=== PATIENT | male | born 1960 | race Caucasian/White ===

== ENCOUNTER 2017-02-19 17:37 | Inpatient (IN) ==
--- NOTE | 2017-02-19 17:49 | Emergency Department Note ---
Disposition Clinical Impression: Transient cerebral ischemia Qualifiers: Transient cerebral ischemia type: unspecified Qualified Code(s): G45.9 - Transient cerebral ischemic attack, unspecified Disposition: Admitted As Inpatient Condition: Good [facility]: [facility] Care Provider[facility] - Forms: ED Satisfaction Letter Time of Disposition: 19:05 Neuro HPI - General Chief Complaint: ED Neuro Symptoms/Deficit Stated Complaint: right side numbness face/arm/leg Time Seen by Provider: 02/19/17 17:42 Source: patient, EMS Mode of arrival: EMS Limitations: no limitations Nursing Notes Reviewed: Yes Vital Signs Reviewed: Yes - History of Present Illness HPI Narrative: 56-year-old with onset of right-sided facial right arm and right leg numbness and says he couldn't use his arm like he normally does earlier. Last known well was 9:30 this morning. He states symptoms have improved. Patient will was seen at the [facility] they did no testing no imaging and sent him right here. Onset of Symptoms Date: 02/19/17 Onset of Symptoms Time: 09:30 Symptom Onset Unknown: No Timing confirmed by: caregiver Location: right face, right arm, right leg History of same: No Severity: moderate Quality: numbness, other (Some difficulty using the right arm) Symptoms Improving: Yes Improves with: time Worsens with: none Context: sudden onset On Anticoagulants: No Associated symptoms: Reports: denies other symptoms Treatments Prior to Arrival: none - Related Data Home Medications: Previous Rx's Medication Instructions Recorded methylPREDNISolone [Medrol] 1 pack PO DAILY #1 packet 09/27/15 Allergies/Adverse Reactions: Allergies Allergy/AdvReac Type Severity Reaction Status Date / Time Penicillins Allergy Rash Verified 02/19/17 17:40 Sulfa (Sulfonamide Allergy Swelling Verified 02/19/17 17:40 Antibiotics) of Lip/Tongue/Throat fruits Allergy Hives Uncoded 02/19/17 17:40 Constitutional: Denies: fever, chills, weakness, weight change Eyes: Denies: eye pain, eye discharge, vision change ENT ED: Denies: ear pain, throat pain, dental pain, hearing loss, epistaxis, congestion, dysphagia Cardiovascular: Denies: chest pain, palpitations, dyspnea on exertion, edema, syncope Respiratory: Denies: cough, dyspnea, wheezes, hemoptysis, stridor Gastrointestinal: Denies: abdominal pain, nausea, vomiting, diarrhea, constipation, hematemesis, melena, hematochezia Genitourinary: Denies: urgency, dysuria, frequency, hematuria Musculoskeletal: Denies: back pain, neck pain, arthralgia, myalgia Integumentary: Denies: rash, abrasion, lesions Neurological: Reports: numbness, other (Coordination of right arm). Denies: headache, weakness, paresthesias, confusion, abnormal gait, vertigo Psychiatric: Denies: anxiety, depression, suicidal thoughts, homicidal thoughts , auditory hallucinations, visual hallucinations Endocrine: Denies: fatigue Hematological/Lymphatic: Denies: easy bleeding, easy bruising Allergic/Immunologic: Denies: facial swelling, urticaria Past Medical History - Past Medical History Medical history: Reports: GERD, other Psychiatric history: Reports: no psych history - Social History Smoking Status: Never smoker Smokeless Tobacco Status: No Alcohol use: Reports: rarely Drug use: Reports: none Physical Exam - General Limitations: no limitations General appearance: alert, in no apparent distress - Head Head exam: atraumatic, normocephalic, normal inspection - Eye Eye exam: Present: normal appearance, PERRL, EOMI - ENT ENT exam: normal exam, normal oropharynx, mucous membranes moist - Neck Neck exam: Present: normal inspection, full ROM, trachea midline - Chest Chest inspection: Present: normal inspection, symmetric chest wall rise - Respiratory Respiratory exam: Present: normal lung sounds bilaterally - Cardiovascular Cardiovascular exam: Present: regular rate, normal rhythm, normal heart sounds - Abdominal Exam Abdominal exam: Present: soft, Non-Tender. Absent: tenderness, distention, guarding, rebound, rigidity - Extremities Exam Extremities exam: Present: normal inspection, full ROM. Absent: tenderness, pedal edema - Expanded Lower Extremity Exam Neurovascular/Tendon exam: Absent: motor deficit, sensory deficit, tendon deficit Gait: observed and normal - Back Exam Back exam: Present: normal inspection, full ROM. Absent: tenderness - Neurological Exam Neurological exam: Present: alert, oriented X3, motor sensory deficit (Some decreased sensation in the right arm and right face) - Psychiatric Psychiatric exam: Present: normal affect, normal mood Course - Reevaluation(s) Reevaluation #1: 56-year-old male who comes in with numbness in his right arm right leg and face. Had some difficulty using his right arm earlier. CT shows chronic ischemic changes noted acute findings. His onset was 9:30 this morning which is more than 4-1/2 hours since onset. His symptoms are improving. Consultation obtained with neurology not a TPA candidate patient did receive aspirin at the [place]. He will be admitted for further evaluation and treatment. Time: 19:06 - Consultations Consultation #1: Discussed with , not TPA condidate. Time: 18:59 Consultation #2: Discussed with Dr. Johnson, admit Time: 19:21 Vital Signs Pulse Rate 68 02/19/17 17:42 Respiratory Rate 20 02/19/17 17:42 Blood Pressure 163/91 02/19/17 17:42 Temperature 98.1 F 02/19/17 17:43 Pulse Rate 58 02/19/17 18:53 Respiratory Rate 20 02/19/17 18:53 Blood Pressure 154/94 02/19/17 18:53 O2 Sat by Pulse Oximetry 96 02/19/17 17:53 Oxygen Delivery Oxygen Delivery Room Air Neuro Symptoms/Deficit - Lab Data Lab results reviewed: Yes I reviewed the patient's lab results. Result diagrams: 02/19/17 15:51 02/19/17 15:51 Lab Results 02/19/17 02/19/17 02/19/17 Range/Units 15:51 15:51 15:51 WBC 9.6 (4.3-11.1) K/mcL RBC 4.43 (4.19-5.50) M/mcL Hgb 12.9 (12.9-16.9) g/dL Hct 37.6 (37.5-50.1) % MCV 84.9 (83.0-100.0) fL MCH 29.1 (28.0-33.3) pg MCHC 34.3 (31.6-35.5) g/dL RDW 14.0 (11.5-14.5) % Plt Count 172 (140-400) K/mcL MPV 11.4 (9.4-12.4) fL Immature Gran % 0.3 (0-4) % Seg Neutrophils % 57.4 % Lymphocytes % 30.1 % Monocytes % 7.7 % Eosinophils % 3.8 % Basophils % 0.7 % Neutrophils # 5.5 (1.6-8.9) K/mcL Lymphocytes # 2.9 (0.6-4.6) K/mcL Monocytes # 0.7 (0.0-1.3) K/mcL Eosinophils # 0.4 (0.0-0.6) K/mcL Basophils # 0.1 (0.0-0.2) K/mcL PT 12.3 H (9.4-12.1) Seconds INR 1.1 APTT 32.6 (26.0-36.0) Seconds Sodium 138 (136-145) mEq/L Potassium 4.2 (3.5-4.5) mEq/L Chloride 106 (98-109) mEq/L Carbon Dioxide 26 (19-29) mEq/L BUN 24 (8-26) mg/dL Creatinine 1.07 (0.72-1.25) mg/dL Est GFR ( Amer) > 60 (> 60) Est GFR (Non-Af Amer) > 60 (> 60) BUN/Creatinine Ratio 22 (6-26) Glucose 80 (70-99) mg/dL Calculated Osmolality 289 (280-300) Calcium 9.7 (8.6-10.8) mg/dL Troponin I (0-0.03) ng/mL 02/19/17 Range/Units 15:51 WBC (4.3-11.1) K/mcL RBC (4.19-5.50) M/mcL Hgb (12.9-16.9) g/dL Hct (37.5-50.1) % MCV (83.0-100.0) fL MCH (28.0-33.3) pg MCHC (31.6-35.5) g/dL RDW (11.5-14.5) % Plt Count (140-400) K/mcL MPV (9.4-12.4) fL Immature Gran % (0-4) % Seg Neutrophils % % Lymphocytes % % Monocytes % % Eosinophils % % Basophils % % Neutrophils # (1.6-8.9) K/mcL Lymphocytes # (0.6-4.6) K/mcL Monocytes # (0.0-1.3) K/mcL Eosinophils # (0.0-0.6) K/mcL Basophils # (0.0-0.2) K/mcL PT (9.4-12.1) Seconds INR APTT (26.0-36.0) Seconds Sodium (136-145) mEq/L Potassium (3.5-4.5) mEq/L Chloride (98-109) mEq/L Carbon Dioxide (19-29) mEq/L BUN (8-26) mg/dL Creatinine (0.72-1.25) mg/dL Est GFR ( Amer) (> 60) Est GFR (Non-Af Amer) (> 60) BUN/Creatinine Ratio (6-26) Glucose (70-99) mg/dL Calculated Osmolality (280-300) Calcium (8.6-10.8) mg/dL Troponin I 0.01 (0-0.03) ng/mL - Radiology Data Radiology results reviewed: Yes I reviewed the patient's radiology results. Head CT 02/19/17 17:44 IMPRESSION: No acute intracranial abnormality. Nonspecific areas of hypoattenuation within the periventricular and subcortical white matter, most in the right frontal lobe, which likely represent chronic microvascular ischemic change. D/ / 02/19/2017 18:23:03 Terry Farmer MD / danelle Interpreting Provider: Terry Farmer MD - EKG Data EKG attestation: Yes I reviewed and interpreted this EKG. EKG shows normal: sinus rhythm Rate: normal Rhythm: NSR Interpretation: no acute changes NIH Stroke Scale - Level of Consciousness LOC: Alert - LOC Questions LOC Questions: Answers both correctly - LOC Commands LOC Commands: Performs both correctly - Best Gaze Best Gaze: Normal - Visual Visual: No visual loss - Facial Palsy Facial Palsy: Normal - Motor Arms Motor Arm-Left: No drift for 10 seconds Motor Arm-Right: No drift for 10 seconds - Motor Legs Motor Leg-Left: No drift for 5 seconds Motor Leg-Right: No drift for 5 seconds - Limb Ataxia Limb Ataxia: Normal, No Ataxia - Sensory Sensory: Mild to moderate loss, "not as sharp" - Best Language Best Language: No aphasia - Dysarthria Dysarthria: Normal - Extinction and Inattention Extinction and Inattention: Normal - NIHSS Total Score NIHSS Total Score: 1 TPA Checklist - Eligibilty for IV tPA 1. LKW equal to or less than 4.5 hours be before treatment: No - LKW: 3-4.5 hrs Add. Warnings/Precautions Patient/family understanding: The patient/family members have been counseled and understood the risk, benefit , and alternatives of treatment.
[2017-02-19 17:57] LABS: Basophils # 0.1 K/mcL (0.0-0.2); Basophils % 0.7 %; Eosinophils # 0.4 K/mcL (0.0-0.6); Eosinophils % 3.8 %; Hematocrit 37.6 % (37.5-50.1); Hemoglobin 12.9 g/dL (12.9-16.9); Immature Granulocytes % 0.3 % (0-4); Lymphocytes # 2.9 K/mcL (0.6-4.6); Lymphocytes % 30.1 %; Mean Corpuscular HGB Conc 34.3 g/dL (31.6-35.5); Mean Corpuscular Hemoglobin 29.1 pg (28.0-33.3); Mean Corpuscular Volume 84.9 fL (83.0-100.0); Mean Platelet Volume 11.4 fL (9.4-12.4); Monocytes # 0.7 K/mcL (0.0-1.3); Monocytes % 7.7 %; Neutrophils # 5.5 K/mcL (1.6-8.9); Platelet Count 172 K/mcL (140-400); Red Blood Count 4.43 M/mcL (4.19-5.50); Segmented Neutrophils % 57.4 %
[2017-02-19 18:02] LABS: INR 1.1; Prothrombin Time 12.3 Seconds (9.4-12.1)
[2017-02-19 18:05] LABS: Activated Partial Thrombo Time 32.6 Seconds (26.0-36.0)
[2017-02-19 18:09] LABS: BUN/Creatinine Ratio 22 (6-26); Blood Urea Nitrogen 24 mg/dL (8-26); Calcium 9.7 mg/dL (8.6-10.8); Carbon Dioxide 26 mEq/L (19-29); Chloride 106 mEq/L (98-109); Glucose 80 mg/dL (70-99); Osmolality,Calculated 289 (280-300); Potassium 4.2 mEq/L (3.5-4.5); Sodium 138 mEq/L (136-145); eGFR For African Americans > 60 (> 60); eGFR For Non-African Americans > 60 (> 60)
[2017-02-19] MEDS ORDERED: tiZANidine 4 MG TABLET PO PRN (21:15)
--- NOTE | 2017-02-19 21:21 | Internal Med History&Physical ---
Date of Encounter: 02/19/17 Time of Encounter: 21:18 Assessment and Plan (1) Hypertension Current visit: Yes Status: Acute hold blood pressure medications to allow for permissive hypertension. Qualifiers: Qualified Code(s): I10 - Essential (primary) hypertension (2) Prediabetes Current visit: Yes Status: Acute Sliding scale insulin. Check hemoglobin A-1 C (3) Transient cerebral ischemia Current visit: Yes Status: Acute We will start the patient on aspirin and Stantin. Check echocardiogram carotid Doppler. We will get MRI of the head. Neurology evaluation. PT/OT and speech therapy to see the patient Qualifiers: Transient cerebral ischemia type: unspecified Qualified Code(s): G45.9 - Transient cerebral ischemic attack, unspecified Internal Medicine - H&P: HPI Chief complaint: right side numbness History of present illness: Mr. Mcconnell is a 56 year old male with history of hypertension, prediabetes, 25 pack your smoking history presents to [facility] with main complain of right side numbness. At 9 AM patient started noticing numbness in the right arm, shortly after that progressed to involve right side of lip and right lower extremity. He denies any moral weakness but mentioned that he may have been having some difficulty holding things because of the numbness. He denies any fish last mentioned or speech slenderness. He denies any prior similar episodes. He mentioned that his right arm numbness was still present during my interview. No recency brand illnesses. No chest pain or shortness of breath. Denies drug use. Past Med Surg Social Fam HX - Past Medical History Medical history: GERD, other Psychiatric history: no psych history - Social History Smoking Status: Never smoker Smokeless Tobacco Status: No Alcohol use: rarely Drug use: none Internal Medicine - H&P: Meds Alfuzosin HCl [Uroxatral] 10 mg PO HS 02/19/17 [History] Cholecalciferol (D-3) [Vitamin D] 1,000 unit PO DAILY 02/19/17 [History] Dutasteride [Avodart] 0.5 mg PO HS 02/19/17 [History] Fluticasone Propionate Nasal [Flonase] 100 mcg NS DAILY 02/19/17 [History] Gabapentin [Neurontin] 1,200 mg PO TID 02/19/17 [History] GuaiFENesin/Dextromethorphan [Tussin Dm Syrup] 10 ml PO Q4H PRN 02/19/17 [ History] Lidocaine 4% CRM (LMX) [Lmx 4] 1 appl TP BID 02/19/17 [History] Lisinopril [Zestril] 10 mg PO DAILY 02/19/17 [History] Metformin HCl [Metformin HCl ER] 500 mg PO QPM 02/19/17 [History] Montelukast [Singulair] 10 mg PO DAILY 02/19/17 [History] Naproxen [Naprosyn] 500 mg PO BID 02/19/17 [History] Omeprazole [PriLOSEC] 20 mg PO DAILY 02/19/17 [History] Tizanidine HCl 2 mg PO BID PRN 02/19/17 [History] Tramadol HCl [Ultram] 100 mg PO TID PRN 02/19/17 [History] 3 Allergy/AdvReac Type Severity Reaction Status Date / Time Penicillins Allergy Rash Verified 02/19/17 17:40 Sulfa (Sulfonamide Allergy Swelling Verified 02/19/17 17:40 Antibiotics) of Lip/Tongue/Throat fruits Allergy Hives Uncoded 02/19/17 17:40 All Systems PM: A 10-system review of systems was performed and is negative for pertinent findings except as documented above in the HPI. Review of systems: 10 point review of systems is negative except for HPI - Constitutional Vitals: Temp Pulse Resp BP Pulse Ox 98.1 F 58 0 0/0 96 02/19/17 17:43 02/19/17 18:53 02/19/17 20:28 02/19/17 20:28 02/19/17 17:53 Exam: Gen.: patient is alert oriented times 3 kn and distress. Cardiac: normal S1 S2 no additional sounds are murmurs chest: clear auscultation bilaterally abdomen: soft nontender nondistended normal bowel sounds lower extremity no swelling neurological: no focal weakness, intact sensation, intracranial nerve examination, normal cerebellar signs. Internal Med - H&P Results - Labs CBC & Chem 7: 02/19/17 15:51 02/19/17 15:51
[2017-02-19] MEDS ORDERED: Dextrose Gel 15 GM PO PRN ×2 (22:07)
[2017-02-19] MEDS ORDERED: D5% in Water 1,000 ML IVC PRN (22:07)
[2017-02-19] MEDS ORDERED: *HR* Dextrose 50 % in Water (Syg) 50 ML SYRINGE IVP PRN (22:07)
[2017-02-19] MEDS: traMADol 50 MG TABLET PO PRN (23:40)
[2017-02-20 05:12] LABS: Basophils # 0.1 K/mcL (0.0-0.2); Basophils % 0.7 %; Eosinophils # 0.5 K/mcL (0.0-0.6); Eosinophils % 5.4 %; Hematocrit 38.2 % (37.5-50.1); Hemoglobin 12.9 g/dL (12.9-16.9); Immature Granulocytes % 0.3 % (0-4); Lymphocytes # 2.7 K/mcL (0.6-4.6); Lymphocytes % 31.1 %; Mean Corpuscular HGB Conc 33.8 g/dL (31.6-35.5); Mean Corpuscular Hemoglobin 28.9 pg (28.0-33.3); Mean Corpuscular Volume 85.5 fL (83.0-100.0); Mean Platelet Volume 11.8 fL (9.4-12.4); Monocytes # 0.7 K/mcL (0.0-1.3); Monocytes % 8.4 %; Neutrophils # 4.7 K/mcL (1.6-8.9); Platelet Count 178 K/mcL (140-400); Red Blood Count 4.47 M/mcL (4.19-5.50); Red Cell Distribution Width 13.9 % (11.5-14.5); Segmented Neutrophils % 54.1 %
[2017-02-20 05:25] LABS: Hemoglobin A1C 5.7 %
[2017-02-20 05:28] LABS: BUN/Creatinine Ratio 19 (6-26); Blood Urea Nitrogen 21 mg/dL (8-26); Calcium 9.7 mg/dL (8.6-10.8); Carbon Dioxide 26 mEq/L (19-29); Chloride 105 mEq/L (98-109); Glucose 106 mg/dL (70-99); Osmolality,Calculated 293 (280-300); Potassium 4.5 mEq/L (3.5-4.5); Sodium 140 mEq/L (136-145); eGFR For African Americans > 60 (> 60); eGFR For Non-African Americans > 60 (> 60)
[2017-02-20] MEDS ORDERED: *HR* Heparin 5,000 UNIT/ML VIAL SQ SCH ×2 (06:00→18:00)
[2017-02-20] MEDS: Insulin LISPRO 300 UNITS/3 ML VIAL SQ SCH ×3 (07:57→16:37)
[2017-02-20] MEDS: Gabapentin 400 MG CAPSULE PO SCH ×2 (07:58→15:01)
[2017-02-20] MEDS: traMADol 50 MG TABLET PO PRN ×2 (08:08→15:00)
[2017-02-20] MEDS ORDERED: Aspirin 81 MG TAB.CHEW PO SCH (09:00)
[2017-02-20] MEDS ORDERED: Fluticasone Propionate Nasal 50 MCG/SPRAY BOTTLE NS SCH (09:00)
--- NOTE | 2017-02-20 11:05 | Neurology - Consult Note ---
Date of Encounter: 02/20/17 Time of Encounter: 11:02 Assessment and Plan (1) CVA (cerebral vascular accident) Current Visit: Yes Status: Acute Patient wit HTN, DM and obesity who developed acute right sided hemiparesthesia , with MRI of brain showing left thalamic infarct, lacunar in nature, small vessel in etiology. Will keep him on full aspirin 325mg daily. Await echocardiography and carotid artery doppler study. Permissive treatment for HTN for a week. Check lipid panel and treat accordingly. Patient has minimal neurological deficits. Okay to discharge after stroke work up is complete. Qualifiers: CVA mechanism: unspecified Qualified Code(s): I63.9 - Cerebral infarction, unspecified History of Present Illness Chief complaint: right sided paresthesia HPI: Mr. Mcconnell is a 56 year old male with PMH significant for HTN, DM, obesity chronic back pain who developed acute onset of right sided paresthesia, numbness yesterday at 9am. By the time he went to ER, the numbness improved with only right hand feeling different. Decided not to be a candidate for tPA thrombolysis due to very mild neurological deficits. MRI of brain showed presence of acute left thalamic infarct. carotid artery duplex and echocardiography results are pending. Past Med Surg Social Fam HX - Past Medical History Medical history: GERD, other Psychiatric history: no psych history - Social History Smoking Status: Never smoker Smokeless Tobacco Status: No Alcohol use: rarely Drug use: none Medications and Allergies Alfuzosin HCl [Uroxatral] 10 mg PO HS 02/19/17 [History] Cholecalciferol (D-3) [Vitamin D] 1,000 unit PO DAILY 02/19/17 [History] Dutasteride [Avodart] 0.5 mg PO HS 02/19/17 [History] Fluticasone Propionate Nasal [Flonase] 100 mcg NS DAILY 02/19/17 [History] Gabapentin [Neurontin] 1,200 mg PO TID 02/19/17 [History] GuaiFENesin/Dextromethorphan [Tussin Dm Syrup] 10 ml PO Q4H PRN 02/19/17 [ History] Lidocaine 4% CRM (LMX) [Lmx 4] 1 appl TP BID 02/19/17 [History] Lisinopril [Zestril] 10 mg PO DAILY 02/19/17 [History] Metformin HCl [Metformin HCl ER] 500 mg PO QPM 02/19/17 [History] Montelukast [Singulair] 10 mg PO DAILY 02/19/17 [History] Naproxen [Naprosyn] 500 mg PO BID 02/19/17 [History] Omeprazole [PriLOSEC] 20 mg PO DAILY 02/19/17 [History] Tizanidine HCl 2 mg PO BID PRN 02/19/17 [History] Tramadol HCl [Ultram] 100 mg PO TID PRN 02/19/17 [History] 3 Allergy/AdvReac Type Severity Reaction Status Date / Time Penicillins Allergy Rash Verified 02/19/17 17:40 Sulfa (Sulfonamide Allergy Swelling Verified 02/19/17 17:40 Antibiotics) of Lip/Tongue/Throat fruits Allergy Hives Uncoded 02/19/17 17:40 All Systems: A 10-system review of systems was performed and is negative for pertinent findings except as documented above in the HPI. Physical Examination - Vital Signs Vital Signs: Initial Vital Signs Pulse Resp BP 68 20 163/91 02/19/17 17:42 02/19/17 17:42 02/19/17 17:42 - Constitutional General appearance: comfortable - Neurologic Sensorimotor examination: other (right hand reduced pinprick) Detailed motor examination: grossly full strength in all extremities Motor examination - right side: 5/5: deltoids, biceps, triceps, wrist flexion, wrist extension, hr business partner consultant, hip flexors, tibialis Anterior, quadriceps, toe extension (EHL), plantarflexion Motor examination - left side: 5/5: deltoids, biceps, triceps, wrist flexion, wrist extension, hip flexors, hr business partner consultant, quadriceps, tibialis Anterior, toe extension (EHL), plantarflexion Detailed sensory examination: other (Right hand reduced pinprick) Reflexes: Biceps: 1+, Triceps: 1+, Brachioradialis: 1+, Patella: 1+, Achilles: 1 + Mental Status Examination: awake, alert, oriented to person, oriented to place, oriented to time, follows commands appropriately, answers questions appropriately, no agnosia, no aphasia, no aproxia Cranial nerve examination: PERRL, EOMI, visual cabral intact, corneal reflexes brisk symmetrically, sensory to face intact, mastication intact, no facial asymmetry is present, no dysarthria, hearing is intact symmetrically, soft palate elevates bilaterally upon phonation, gag reflex intact, flexes SCM and trapezius muscles symmetrically with full power, tongue protrudes midline, no atrophy or facial fasiculations present Cerebellar examination: no dysmetria, performs finger to nose and heel to tilley symmetrically without ataxia, no gait ataxia, no truncal ataxia, no difficulty with rapid alternating movements Results - Laboratory Findings CBC and BMP: 02/20/17 04:51 02/20/17 04:51 Abnormal lab findings: Abnormal lab results PT 12.3 Seconds (9.4-12.1) H 02/19/17 15:51 Glucose 106 mg/dL (70-99) H 02/20/17 04:51 Hemoglobin A1c 5.7 % (-5.6) H 02/20/17 04:51 Consult Discharge Plan - Plan [facility]errals: [facility] [Primary Care Provider[facility] -
[2017-02-20 16:38] VITALS: BP 170/108
--- NOTE | 2017-02-20 17:18 | Discharge Summary ---
<Uvaldo Caasnova - Last Filed: 02/20/17 17:49> Date of Encounter: 02/20/17 Time of Encounter: 17:21 - Discharge Diagnosis (1) CVA (cerebral vascular accident) Priority: Primary Status: Acute Qualifiers: CVA mechanism: unspecified Qualified Code(s): I63.9 - Cerebral infarction, unspecified (2) Hypertension Priority: Secondary Status: Acute Qualifiers: Hypertension type: essential hypertension Qualified Code(s): I10 - Essential (primary) hypertension (3) Prediabetes Priority: Secondary Status: Acute - Discharge Medications Prescriptions: Aspirin 325 mg PO DAILY #30 tablet Aspirin 325 mg PO DAILY #3 tablet Atorvastatin [Lipitor] 40 mg PO HS #30 tablet Atorvastatin [Lipitor] 40 mg PO HS #3 tablet Home Medications: Alfuzosin HCl [Uroxatral] 10 mg PO HS 02/19/17 [History] Cholecalciferol (D-3) [Vitamin D] 1,000 unit PO DAILY 02/19/17 [History] Dutasteride [Avodart] 0.5 mg PO HS 02/19/17 [History] Fluticasone Propionate Nasal [Flonase] 100 mcg NS DAILY 02/19/17 [History] Gabapentin [Neurontin] 1,200 mg PO TID 02/19/17 [History] GuaiFENesin/Dextromethorphan [Tussin Dm Syrup] 10 ml PO Q4H PRN 02/19/17 [ History] Lidocaine 4% CRM (LMX) [Lmx 4] 1 appl TP BID 02/19/17 [History] Lisinopril [Zestril] 10 mg PO DAILY 02/19/17 [History] Metformin HCl [Metformin HCl ER] 500 mg PO QPM 02/19/17 [History] Montelukast [Singulair] 10 mg PO DAILY 02/19/17 [History] Naproxen [Naprosyn] 500 mg PO BID 02/19/17 [History] Omeprazole [PriLOSEC] 20 mg PO DAILY 02/19/17 [History] Tizanidine HCl 2 mg PO BID PRN 02/19/17 [History] Tramadol HCl [Ultram] 100 mg PO TID PRN 02/19/17 [History] Aspirin 325 mg PO DAILY #3 tablet 02/20/17 [Rx] Aspirin 325 mg PO DAILY #30 tablet 02/20/17 [Rx] Atorvastatin [Lipitor] 40 mg PO HS #3 tablet 02/20/17 [Rx] Atorvastatin [Lipitor] 40 mg PO HS #30 tablet 02/20/17 [Rx] Allergies/Adverse Reactions: 3 Allergy/AdvReac Type Severity Reaction Status Date / Time Penicillins Allergy Rash Verified 02/19/17 17:40 Sulfa (Sulfonamide Allergy Swelling Verified 02/19/17 17:40 Antibiotics) of Lip/Tongue/Throat fruits Allergy Hives Uncoded 02/19/17 17:40 Date of admission: 02/20/17 10:59 [facility] care physician: [facility] Consults: neurology Discharging clinician: Uvaldo Casanova Anticipated date of discharge: 02/20/17 - Patient Status Disposition: Home, Self-Care Condition: Good Functional capacity at discharge: independent ambulation Overall status at discharge: patient is progressing back to baseline - Discharge Instructions Instructions: Aspirin (By mouth), Atorvastatin (By mouth), Ischemic Stroke (DC) Follow Up With: [facility]P [Primary Care Provider] - (MAKE APPT FOR 1 WEEK AFTER DISCHARGE.) Hugh Duff MD [Partnered Physician] - (PLEASE CALL WEDNESDAY AND MAKE APPT FOR 2 WEEKS AFTER DISCHARGE.) Additional Instructions: please do not use lisinopril for one week after discharge. You may then restart the medication please return to ER if you have signs of facial drooping, one sided weakness, numbness, slurred speech. please follow up with outpatient neurology and primary care alejandrina start new medication aspirin 324mg daily. Start atorvastatin 40mg daily. - Diet and Activity Activity: increase activity as tolerated Diet: low fat, low cholesterol, low salt diet Interval History: 56y/o male presented with complaint of right sided numbness which started at 9AM on 02/19/2017. Numbness involved right arm, lip, and lower extremity. When arriving to ER he continued ot have right arm numbness but his other symptoms had resolved. Heat CT negative. He did not receive tPA as his neurological dificits were mild. MRI of brain showed acute left thalamic infarct. Carotid artery duplex WNL and echocardiogram pending. neurology evaluated patient and recommended starting Aspirin 325mg and Atorvastatin and cleared him for discharge. Patient passed swallow evaluation. He was cleared by PT/OT. He is able to ambulate independently, tolerating his diet. Plan: start Aspirin 325mg dialy. start atorvastatin daily. Hold lisinopril for one week after discharge and then restart. Follow up outpatient with PCP and neurology. Hospital course: Mr. Mcconnell is a 56 year old male - Time Spent with Patient Total time spent providing and/or coordinating discharge services: - Constitutional Vitals: Temp Pulse Resp BP Pulse Ox 97.9 F 68 15 170/108 96 02/20/17 16:33 02/20/17 16:33 02/20/17 16:33 02/20/17 16:33 02/20/17 16:33 - Head Head exam: Present: atraumatic, normocephalic - Eye Eye exam: Present: PERRL, conjuntiva pink, sclera anicteric - Neck Neck exam general surgery: Present: supple, trachea midline. Absent: lymphadenopathy - Respiratory Respiratory exam: Present: CTAB. Absent: accessory muscle use, rales, rhonchi, wheezes - Cardiovascular Cardiovascular exam: Present: RRR, +S1, +S2. Absent: diastolic murmur, gallop, rubs, systolic murmur - GI/Abdominal GI/Abdominal exam: Present: normal bowel sounds, soft, no peritoneal signs. Absent: distended, tenderness - Extremities Exam Extremities exam: Present: warm, radial pulses palpable and symmetrical. Absent : calf tenderness, cyanotic, pedal edema - Neurological Exam Neurological exam: Present: CN II-XII intact, oriented X3, no focal deficits. Absent: pronater drift, facial droop, speech deficit - Skin Skin exam: Present: dry, intact - VTE Documentation of Mechanical Device: Intermittent pneumatic compression device <Tariq Bruce - Last Filed: 02/20/17 17:54> Date of Encounter: 02/20/17 - Discharge Diagnosis (1) CVA (cerebral vascular accident) Status: Acute Qualifiers: CVA mechanism: thrombosis Precerebral and cerebral artery: middle cerebral artery Laterality of affected vessel: right Qualified Code(s): I63.311 - Cerebral infarction due to thrombosis of right middle cerebral artery (2) Hypertension Status: Chronic Qualifiers: Hypertension type: essential hypertension Qualified Code(s): I10 - Essential (primary) hypertension (3) Prediabetes Status: Chronic Date of admission: 02/20/17 10:59 Primary care physician: [facility] Hospital course: Mr. Mcconnell is a 56 year old male - Time Spent with Patient Total time spent providing and/or coordinating discharge services: 32min - Constitutional Vitals: Temp Pulse Resp BP Pulse Ox 97.9 F 68 15 170/108 96 02/20/17 16:33 02/20/17 16:33 02/20/17 16:33 02/20/17 16:33 02/20/17 16:33 - Attending Attestation I examined this patient and my medical decision-making was reviewed with the Resident Physician on 02/20/17. I agree with the documented findings, disposition and treatment plan as described except to the extent set forth below. Mr. Mcconnell has been admitted for numbness R side. He has been found to have a thalamic CVA. His echo is pending. He is afebrile. BP is elevated for permissive HTN. He is ready for discharge home. Exam Alert. Comfortable Heart reg No wheeze No edema Plan D/C today Follow up with [facility].
[2017-02-20] MEDS ORDERED: Finasteride 5 MG TABLET PO SCH (21:00)
--- NOTE | 2017-02-21 17:52 | Electrocardiograph Report ---
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
--- NOTE | 2017-02-22 16:54 | Carotid Imaging Report ---
Carotid Duplex Patient Name:Christian Mcconnell Order Number:[id number] Procedure Date:02/20/2017 Date:1960ge:56 yrs Gender:Male Lt BP:145 / 90 mmHg Rt.BP:150 / 90 mmHgHeart Rate: Location[facility] Room #: 2NE29 Spectrographic Analyst:Jennifer Styles, RAMIRO, RVT Referring MD:Michael Smart MD Reading MD:Griffin Meredith MD , [facility] Primary Indications:TIA Risk Factors Yes/No Hypertension Yes Smoker Previous Yes Impressions: Findings: Bilateral carotid systems essentially normal. Findings Carotid Duplex: Right: The right proximal common carotid artery has a PSV of 98 cm/s and a EDV of 29 cm/s. The right mid common carotid artery has a PSV of 89 cm/s and a EDV of 25 cm/s. The right distal common carotid artery has a PSV of 82 cm/s and a EDV of 26 cm/s. The right bifurcation has a PSV of 61 cm/s and a EDV of 18 cm/s. The right proximal internal carotid artery has a PSV of 76 cm/s and a EDV of 23 cm/s. The right mid internal carotid artery has a PSV of 74 cm/s and a EDV of 36 cm/s. The right distal internal carotid artery has a PSV of 117 cm/s and a EDV of 52 cm/s. The right eca has a PSV of 103 cm/s and a EDV of 22 cm/s. The right vertebral artery has a PSV of 62 cm/s and a EDV of 20 cm/s. Left: The left proximal common carotid artery has a PSV of 70 cm/s and a EDV of 22 cm/s. The left mid common carotid artery has a PSV of 66 cm/s and a EDV of 24 cm/s. The left distal common carotid artery has a PSV of 65 cm/s and a EDV of 23 cm/s. The left bifurcation has a PSV of 63 cm/s and a EDV of 23 cm/s. The left proximal internal carotid artery has a PSV of 56 cm/s and a EDV of 17 cm/s. The left mid internal carotid artery has a PSV of 72 cm/s and a EDV of 30 cm/s. The left distal internal carotid artery has a PSV of 76 cm/s and a EDV of 25 cm/s. The left eca has a PSV of 83 cm/s and a EDV of 19 cm/s. The left vertebral artery has a PSV of 61 cm/s and a EDV of 20 cm/s. Prior Study: No prior study available for comparison. Carotid Results Right PSV EDV Assessment Proximal CCA 98 29 Mid CCA 89 25 Distal CCA 82 26 Bifurcation 61 18 Proximal ICA 76 23 Mid ICA 74 36 Distal ICA 117 52 ECA 103 22 Vertebral Artery 62 20 Antegrade Flow Left PSV EDV Assessment Proximal CCA 70 22 Mid CCA 66 24 Distal CCA 65 23 Bifurcation 63 23 Proximal ICA 56 17 Mid ICA 72 30 Distal ICA 76 25 ECA 83 19 Vertebral Artery 61 20 Antegrade Flow Ratio's Right ICA/CCA Ratio: 1.31 ICA/CCA Values: 117/89 Left ICA/CCA Ratio: 1.15 ICA/CCA Values: 76/66 Updated by Griffin Meredith MD, FACS on 02/22/2017 4:49:05 PM Griffin Meredith MD electronically signed on 02/22/2017 4:49:21 PM with status of Final
== END 2017-02-20 17:54 | disposition home or self-care (01) | DRG 66 ==
LOC: 2NENU 17:37 → EMEROO 17:37 → 2NENU 20:28
PROVIDERS: ADMIT Nurse Practitioner Family; ATTEND Internal Medicine

== ENCOUNTER 2020-12-27 09:57 | Observation (INO) ==
[2020-12-27 11:00] LABS: Basophils # 0.1 K/mcL (0.0-0.2); Basophils % 0.7 %; Eosinophils # 0.2 K/mcL (0.0-0.6); Hematocrit 36.5 % (37.5-50.1); Hemoglobin 12.1 g/dL (12.9-16.9); Immature Granulocytes % 0.1 % (0-4); Lymphocytes # 2.3 K/mcL (0.6-4.6); Lymphocytes % 32.3 %; Mean Corpuscular HGB Conc 33.2 g/dL (31.6-35.5); Mean Corpuscular Hemoglobin 28.8 pg (28.0-33.3); Mean Corpuscular Volume 86.9 fL (83.0-100.0); Mean Platelet Volume 11.6 fL (9.4-12.4); Monocytes # 0.5 K/mcL (0.0-1.3); Monocytes % 7.5 %; Platelet Count 170 K/mcL (140-400); Red Cell Distribution Width 13.2 % (11.5-14.5); Segmented Neutrophils % 56.4 %
[2020-12-27 11:50] LABS: Alanine Aminotransferase 47 Units/L (7-52); Albumin 4.2 g/dL (3.5-5.7); Albumin/Globulin Ratio 1.8 (1.1-2.2); Alkaline Phosphatase 61 Units/L (34-104); Aspartate Amino Transferase 51 Units/L (13-39); BUN/Creatinine Ratio 19 (6-26); Bilirubin,Total 0.6 mg/dL (0.3-1.0); Blood Urea Nitrogen 17 mg/dL (6-20); Calcium 9.2 mg/dL (8.6-10.3); Carbon Dioxide 24 mEq/L (23-29); Chloride 107 mEq/L (98-107); Globulin 2.3 g/dL (2.4-3.5); Glucose 194 mg/dL (70-105); Osmolality,Calculated 297 (280-300); Potassium 3.7 mEq/L (3.5-5.1); Sodium 140 mEq/L (136-145); Total Protein 6.5 g/dL (6.4-8.9); Troponin I < 0.03 ng/mL (< 0.04); eGFR For African Americans > 60 (> 60); eGFR For Non-African Americans > 60 (> 60)
[2020-12-27] MEDS ORDERED: Gadolinium Contrast Agent (WT Based) IV PRN (12:22)
[2020-12-27] MEDS ORDERED: *HR* Dextrose 50 % in Water (Vial) 50 ML VIAL IVP PRN (13:26)
[2020-12-27] MEDS ORDERED: Dextrose Gel 15 GM/37.5 ML TUBE PO PRN ×2 (13:26)
[2020-12-27] MEDS ORDERED: D5% in Water 1,000 ML IVC PRN (13:26)
[2020-12-27] MEDS ORDERED: Naloxone 0.4 MG/ML INJ IVP PRN (13:26)
[2020-12-27] MEDS ORDERED: Acetaminophen 325 MG TABLET PO PRN (13:26)
[2020-12-27] MEDS ORDERED: Ondansetron 4 MG/2 ML VIAL IVP PRN (13:26)
[2020-12-27] MEDS ORDERED: Perflutren Lipid Microsphere 1.3 ML in 0.9 % Sodium Chloride 8.7 ML IVP PRN (13:28)
[2020-12-27 15:32] VITALS: BP 149/84; PULSE 55; TEMP 97.7; O2SAT 97
[2020-12-27] MEDS ORDERED: Insulin LISPRO 300 UNITS/3 ML VIAL SUBQ SCH (16:30)
[2020-12-28] MEDS ORDERED: *HR* Enoxaparin 40 MG/0.4 ML SYRINGE SQ SCH (06:00)
[2020-12-28] MEDS ORDERED: Aspirin 81 MG TAB.CHEW PO SCH (09:00)
== END 2020-12-27 18:09 | disposition home or self-care (01) ==
LOC: 3BNU 09:57 → EMEROOARM 09:57 → 3BNU 13:45
PROVIDERS: ADMIT Internal Medicine; ATTEND Internal Medicine